=== PATIENT | female | born 1945 | race Caucasian/White ===

== ENCOUNTER 2018-08-18 14:50 | Inpatient (IN) | payer MEDICARE, OTHER, SELFPAY ==
[~2018-08-18] VITALS: Ht 165.1 cm; Wt 64.1 kg
--- NOTE | 2018-08-18 14:50 | NUR ---
PT BIB [facility] AFTER SLIPPING ON ICE. PT DENIES HEAD PAIN, NECK PAIN, OR LOC. PT RECEIVED FENTANYL AND [employer] SUPPORT MANAGER. PT ON MONITOR.
--- NOTE | 2018-08-18 16:04 | NUR ---
REPORT TO VELMA Germain RN
[2018-08-18 16:26] LABS: BASOPHILS # (AUTO) 0.03 x10^3/uL (0-0.1); BASOPHILS % (AUTO) 0 % (0-1); EOSINOPHILS # (AUTO) 0.14 x10^3/uL (0-0.4); EOSINOPHILS % (AUTO) 1 % (1-7); LYMPHOCYTES # (AUTO) 1.27 x10^3/uL (1-3.4); LYMPHOCYTES % (AUTO) 12 % (22-44); MD NO; MEAN CORPUSCULAR HEMOGLOBIN 34.2 pg (27.0-34.8); MEAN CORPUSCULAR VOLUME 100.6 fL (80-100); MEAN PLATELET VOLUME 7.9 fL (7.4-10.4); MONOCYTES % (AUTO) 5 % (2-9); NEUTROPHILS # (AUTO) 8.67 x10^3/uL (1.8-6.8); NEUTROPHILS % (AUTO) 82 % (42-75); PLATELET COUNT 202 x10^3/uL (130-400); RED BLOOD COUNT 4.46 x10^6/uL (3.82-5.3); RED CELL DISTRIBUTION WIDTH 14.3 % (9.6-15.2)
--- NOTE | 2018-08-18 16:28 | NUR ---
Bedside SBAR report received from RNCathleen. [facility] resting [facility] aware of plan to admit to hospital.
[2018-08-18] MEDS ORDERED: MORPHINE SULFATE 4 MG/ML, 1ML ONE (16:30)
[2018-08-18] MEDS ORDERED: PLEASE ENTER ALLERGIES MC SCH (16:30)
[2018-08-18] MEDS ORDERED: ONDANSETRON 2MG/ML, 2ML IVPush ONE (16:30)
[2018-08-18] MEDS ORDERED: SODIUM CHLORIDE FLUSH 10ML SYR IVF ONE (16:30)
[2018-08-18] MEDS ORDERED: MORPHINE SULFATE 4 MG/ML, 1ML IVPush PRN (16:30)
[2018-08-18 16:35] LABS: INTERNATIONAL NORMALIZED RATIO 0.97 (0.93-1.1); PROTHROMBIN TIME 10.3 Seconds (9.6-11.5)
[2018-08-18] MEDS ORDERED: ONDANSETRON 2MG/ML, 2ML ONE ×2 (16:35→21:05)
--- NOTE | 2018-08-18 16:36 | NUR ---
Pt medicated per AUG. Pt to imaging, with tech, via fang.
[2018-08-18 16:37] LABS: ALANINE AMINOTRANSFERASE 27 U/L (12-78); ALBUMIN 3.9 g/dL (3.4-5.0); ANION GAP 8 mmol/L (5-15); CALCIUM 8.8 mg/dL (8.5-10.1); CHLORIDE 108 mmol/L (98-107); CREATININE 0.83 mg/dL (0.55-1.02)
[2018-08-18 16:39] LABS: ALKALINE PHOSPHATASE 122 U/L (45-117); BILIRUBIN,TOTAL 0.6 mg/dL (0.2-1.0)
--- NOTE | 2018-08-18 17:25 | NUR ---
Pt's daughter: Gloria Mathis , called for pt's med rec.
[2018-08-18] MEDS ORDERED: vitamin b PO (17:35)
[2018-08-18] MEDS ORDERED: MONT10TA9 PO (17:35)
[2018-08-18] MEDS ORDERED: POTA20TA89 PO (17:35)
[2018-08-18] MEDS ORDERED: TORS5TAB4 PO (17:35)
[2018-08-18] MEDS ORDERED: PRAV10TA2 PO (17:35)
--- NOTE | 2018-08-18 17:49 | NUR ---
Pt to imaging, with tech, via gupanfilo.
--- NOTE | 2018-08-18 18:40 | NUR ---
Dr. Metzger at bedside to evaluate pt and discuss POC.
--- NOTE | 2018-08-18 18:51 | NUR ---
TELEPHONE SBAR REPORT GIVEN TO CAD ENGINEERLALI. LALI AWARE THAT PT IS REQUESTING TO HAVE PANTS REMOVED AFTER ANESTHESIA.
[2018-08-18] MEDS ORDERED: SODIUM CHLORIDE FLUSH 10ML SYR IVF PRN (19:00)
[2018-08-18] MEDS ORDERED: FENTANYL PF 250 MCG/5ML ONE (19:13)
[2018-08-18] MEDS ORDERED: hydrALAzine 20 MG/ML, 1ML IV PRN (19:30)
[2018-08-18] MEDS ORDERED: ONDANSETRON 2MG/ML, 2ML IV PRN ×2 (19:30→23:30)
[2018-08-18] MEDS ORDERED: OXYcodone 5 MG/5 ML ORAL.SOL UDC PO PRN (19:30)
[2018-08-18] MEDS ORDERED: MEPERIDINE/PF 25MG/0.5ML IVPush PRN (19:30)
[2018-08-18] MEDS ORDERED: ACETAMINOPHEN 325 MG TABLET PO PRN ×2 (19:30→23:30)
[2018-08-18] MEDS ORDERED: LABETALOL 5MG/ML, 20ML IV PRN (19:30)
[2018-08-18] MEDS ORDERED: PROMETHAZINE 25 MG/ML, 1ML IV PRN (19:30)
[2018-08-18] MEDS ORDERED: BUPIVACAINE/PF-EPI 0.5% 1:200K ONE (19:36)
[2018-08-18] MEDS ORDERED: DEXAMETHASONE 4 MG/ML, 1ML ONE (19:45)
[2018-08-18] MEDS ORDERED: TRANEXAMIC ACID 100 MG/ML, 10ML ONE (20:07)
[2018-08-18] MEDS ORDERED: ROCURONIUM 10MG/ML,5ML ONE (21:05)
[2018-08-18] MEDS ORDERED: CEFAZOLIN 1,000 MG ONE ×2 (21:05)
[2018-08-18] MEDS ORDERED: PROPOFOL 10 MG/ML, 20ML ONE (21:05)
[2018-08-18] MEDS ORDERED: FENTANYL PF 100 MCG/2ML ONE ×2 (21:24→21:41)
[2018-08-18] MEDS ORDERED: OXYcodone 5 MG/5 ML ORAL.SOL UDC ONE (21:41)
[2018-08-18] MEDS: FENTANYL PF 100 MCG/2ML IV PRN ×2 (21:44→21:57)
[2018-08-18] MEDS ORDERED: HYDROmorphone 1 MG/ML, 1ML ONE (21:59)
[2018-08-18] MEDS: HYDROmorphone 2 MG/ML, 1ML IVPush PRN ×4 (22:01→22:26)
[2018-08-18] MEDS ORDERED: ALUMINUM/MAG/SIMETHICONE 30 ML UDC PO PRN (23:30)
[2018-08-18] MEDS ORDERED: SENNA/DOCUSATE TABLET PO PRN (23:30)
[2018-08-18] MEDS ORDERED: HYDROmorphone 2 MG/ML, 1ML IVPush PRN (23:30)
[2018-08-18] MEDS ORDERED: DIAZEPAM 5 MG TABLET PO PRN (23:30)
[2018-08-18] MEDS ORDERED: MAGNESIUM HYDROXIDE 8%, 30ML UDC PO PRN (23:30)
[2018-08-18] MEDS ORDERED: HYDROcodone/APAP 7.5-325MG/15ML UDC PO PRN (23:30)
[2018-08-18] MEDS ORDERED: BISACODYL 10 MG SUPP PR PRN (23:30)
[2018-08-19 00:06] VITALS: BP 116/77
[2018-08-19] MEDS: OXYcodone 5 MG/5 ML ORAL.SOL UDC PO PRN ×4 (01:28→19:46)
[2018-08-19] MEDS: CEFAZOLIN PMX 2GM/50ML 50 ML IVPB SCH ×2 (04:46→13:33)
[2018-08-19 05:07] LABS: ALBUMIN 3.1 g/dL (3.4-5.0); ANION GAP 6 mmol/L (5-15); CALCIUM 7.9 mg/dL (8.5-10.1); CHLORIDE 108 mmol/L (98-107); CREATININE 0.89 mg/dL (0.55-1.02)
[2018-08-19] MEDS: D5%-LACTATED RINGERS 1,000 ML IV SCH ×2 (06:58→19:40)
[2018-08-19] MEDS: SODIUM CHLORIDE FLUSH 10ML SYR IVF SCH ×2 (07:53→19:46)
[2018-08-19] MEDS: HEPARIN 5,000 UNITS/ML, 1ML SQ SCH ×3 (07:53→16:16)
[2018-08-19] MEDS: DOCUSATE 100 MG CAPSULE PO SCH ×2 (07:53→19:46)
[2018-08-19] MEDS: POTASSIUM CHLORIDE 20 MEQ TAB.ER.PRT PO SCH (07:53)
[2018-08-19] MEDS: MONTELUKAST 10 MG TABLET PO SCH (07:53)
[2018-08-19] MEDS: MULTIVITAMINS/MINERALS TABLET PO SCH (07:53)
[2018-08-19 08:57] VITALS: BP 106/80
[2018-08-19] MEDS: TORSEMIDE 5 MG PO SCH (09:00)
[2018-08-19] MEDS ORDERED: VIT1CAPS42 PO (10:49)
[2018-08-19 14:53] VITALS: BP 109/71
[2018-08-19 17:23] LABS: CULTURE INDICATED? YES; MICROSCOPIC AUTO
[2018-08-19 19:35] VITALS: BP 119/67
[2018-08-19] MEDS: PRAVASTATIN 20 MG TABLET PO SCH (19:46)
[2018-08-20] VITALS: BP 115/63
[2018-08-20] MEDS: OXYcodone 5 MG/5 ML ORAL.SOL UDC PO PRN ×4 (01:48→20:51)
[2018-08-20] MEDS: HEPARIN 5,000 UNITS/ML, 1ML SQ SCH ×3 (01:48→17:08)
[2018-08-20] MEDS: D5%-LACTATED RINGERS 1,000 ML IV SCH ×2 (03:36→23:30)
[2018-08-20 09:10] VITALS: BP 100/67
[2018-08-20] MEDS: SODIUM CHLORIDE FLUSH 10ML SYR IVF SCH ×2 (09:11→20:40)
[2018-08-20] MEDS: TORSEMIDE 5 MG PO SCH (09:14)
[2018-08-20] MEDS: POTASSIUM CHLORIDE 20 MEQ TAB.ER.PRT PO SCH (09:16)
[2018-08-20] MEDS: DOCUSATE 100 MG CAPSULE PO SCH ×2 (09:16→20:40)
[2018-08-20] MEDS: MULTIVITAMINS/MINERALS TABLET PO SCH (09:16)
[2018-08-20] MEDS: MONTELUKAST 10 MG TABLET PO SCH (09:16)
[2018-08-20] MEDS: AREDS HOMEMEDPO SCH ×2 (11:14→20:42)
[2018-08-20] MEDS: POLYETHYLENE GLYCOL 17 GM PACKET PO SCH (11:16)
[2018-08-20] MEDS ORDERED: SENN-177 PO (13:26)
[2018-08-20] MEDS ORDERED: ACET325T14 PO (13:26)
[2018-08-20 15:00] VITALS: BP 104/62
[2018-08-20 19:43] LABS: HEMOGLOBIN A1C 4.8 % (4.2-6.3)
[2018-08-20] MEDS: PRAVASTATIN 20 MG TABLET PO SCH (20:41)
[2018-08-20 20:58] VITALS: BP 103/68
[2018-08-21 02:58] VITALS: BP 110/69
[2018-08-21] MEDS: HEPARIN 5,000 UNITS/ML, 1ML SQ SCH ×3 (03:39→17:10)
[2018-08-21 07:20] VITALS: BP 108/71
[2018-08-21] MEDS: D5%-LACTATED RINGERS 1,000 ML IV SCH ×2 (07:53→19:30)
[2018-08-21] MEDS: SODIUM CHLORIDE FLUSH 10ML SYR IVF SCH ×2 (08:00→20:52)
[2018-08-21] MEDS: POLYETHYLENE GLYCOL 17 GM PACKET PO SCH (08:00)
[2018-08-21] MEDS: DOCUSATE 100 MG CAPSULE PO SCH ×2 (08:00→20:51)
[2018-08-21] MEDS: MONTELUKAST 10 MG TABLET PO SCH (08:00)
[2018-08-21] MEDS: MULTIVITAMINS/MINERALS TABLET PO SCH (08:00)
[2018-08-21] MEDS: POTASSIUM CHLORIDE 20 MEQ TAB.ER.PRT PO SCH (08:00)
[2018-08-21] MEDS: AREDS HOMEMEDPO SCH ×2 (08:00→20:52)
[2018-08-21] MEDS: OXYcodone 5 MG/5 ML ORAL.SOL UDC PO PRN (13:45)
[2018-08-21 14:36] VITALS: BP 99/57
[2018-08-21] MEDS: PRAVASTATIN 20 MG TABLET PO SCH (20:50)
[2018-08-21 20:56] VITALS: BP 99/62
[2018-08-22 01:11] VITALS: BP 120/68
[2018-08-22] MEDS: HEPARIN 5,000 UNITS/ML, 1ML SQ SCH ×3 (01:49→17:17)
[2018-08-22] MEDS: D5%-LACTATED RINGERS 1,000 ML IV SCH ×2 (01:49→12:42)
[2018-08-22] MEDS: OXYcodone 5 MG/5 ML ORAL.SOL UDC PO PRN ×2 (06:31→19:53)
[2018-08-22 07:21] VITALS: BP 103/54
[2018-08-22] MEDS: POTASSIUM CHLORIDE 20 MEQ TAB.ER.PRT PO SCH (08:20)
[2018-08-22] MEDS: MONTELUKAST 10 MG TABLET PO SCH (08:20)
[2018-08-22] MEDS: AREDS HOMEMEDPO SCH ×2 (08:20→19:54)
[2018-08-22] MEDS: POLYETHYLENE GLYCOL 17 GM PACKET PO SCH ×2 (08:20→19:54)
[2018-08-22] MEDS: MULTIVITAMINS/MINERALS TABLET PO SCH (08:20)
[2018-08-22] MEDS: DOCUSATE 100 MG CAPSULE PO SCH ×2 (08:23→19:54)
[2018-08-22] MEDS: SODIUM CHLORIDE FLUSH 10ML SYR IVF SCH ×2 (08:24→19:56)
[2018-08-22] MEDS ORDERED: GLYCERIN ADULT SUPP PR ONE (12:00)
[2018-08-22] MEDS ORDERED: HEPA50002 SQ (12:18)
[2018-08-22 13:34] VITALS: BP 114/56
[2018-08-22 19:35] VITALS: BP 111/65
[2018-08-22] MEDS: PRAVASTATIN 20 MG TABLET PO SCH (19:54)
[2018-08-23 01:24] VITALS: BP 102/66
[2018-08-23] MEDS: D5%-LACTATED RINGERS 1,000 ML IV SCH ×3 (01:30→21:12)
[2018-08-23] MEDS: HEPARIN 5,000 UNITS/ML, 1ML SQ SCH ×3 (01:39→17:39)
[2018-08-23] MEDS: OXYcodone 5 MG/5 ML ORAL.SOL UDC PO PRN ×4 (05:25→21:20)
[2018-08-23 07:34] VITALS: BP 105/63
[2018-08-23] MEDS: MULTIVITAMINS/MINERALS TABLET PO SCH (09:41)
[2018-08-23] MEDS: POLYETHYLENE GLYCOL 17 GM PACKET PO SCH ×2 (09:41→21:13)
[2018-08-23] MEDS: POTASSIUM CHLORIDE 20 MEQ TAB.ER.PRT PO SCH (09:41)
[2018-08-23] MEDS: MONTELUKAST 10 MG TABLET PO SCH (09:41)
[2018-08-23] MEDS: DOCUSATE 100 MG CAPSULE PO SCH ×2 (09:41→21:12)
[2018-08-23] MEDS: SODIUM CHLORIDE FLUSH 10ML SYR IVF SCH ×2 (09:42→21:11)
[2018-08-23] MEDS: AREDS HOMEMEDPO SCH ×2 (09:52→21:00)
[2018-08-23 12:36] VITALS: BP 101/65
[2018-08-23] MEDS: PRAVASTATIN 20 MG TABLET PO SCH (21:12)
[2018-08-23 21:17] VITALS: BP 102/68
[2018-08-24] MEDS: HEPARIN 5,000 UNITS/ML, 1ML SQ SCH ×3 (02:36→17:43)
[2018-08-24 02:41] VITALS: BP 108/60
[2018-08-24 07:43] VITALS: BP 103/54
[2018-08-24] MEDS: AREDS HOMEMEDPO SCH ×2 (10:16→22:36)
[2018-08-24] MEDS: SODIUM CHLORIDE FLUSH 10ML SYR IVF SCH ×2 (10:16→22:34)
[2018-08-24] MEDS: DOCUSATE 100 MG CAPSULE PO SCH ×2 (10:17→22:32)
[2018-08-24] MEDS: TORSEMIDE 20 MG TABLET PO SCH (10:17)
[2018-08-24] MEDS: MONTELUKAST 10 MG TABLET PO SCH (10:18)
[2018-08-24] MEDS: POLYETHYLENE GLYCOL 17 GM PACKET PO SCH ×2 (10:18→22:33)
[2018-08-24] MEDS: MULTIVITAMINS/MINERALS TABLET PO SCH (10:18)
[2018-08-24] MEDS: POTASSIUM CHLORIDE 20 MEQ TAB.ER.PRT PO SCH (10:18)
[2018-08-24 12:34] VITALS: BP 103/64
[2018-08-24] MEDS: OXYcodone 5 MG/5 ML ORAL.SOL UDC PO PRN ×2 (17:43→22:32)
[2018-08-24 19:58] VITALS: BP 103/64
[2018-08-24] MEDS: PRAVASTATIN 20 MG TABLET PO SCH (22:32)
[2018-08-25 00:37] VITALS: BP 101/62
[2018-08-25] MEDS: HEPARIN 5,000 UNITS/ML, 1ML SQ SCH ×3 (02:28→17:01)
[2018-08-25] MEDS: OXYcodone 5 MG/5 ML ORAL.SOL UDC PO PRN ×4 (02:28→21:31)
[2018-08-25 08:30] VITALS: BP 97/62
[2018-08-25] MEDS: DOCUSATE 100 MG CAPSULE PO SCH ×2 (08:37→21:30)
[2018-08-25] MEDS: MULTIVITAMINS/MINERALS TABLET PO SCH (08:37)
[2018-08-25] MEDS: MONTELUKAST 10 MG TABLET PO SCH (08:37)
[2018-08-25] MEDS: POTASSIUM CHLORIDE 20 MEQ TAB.ER.PRT PO SCH (08:37)
[2018-08-25] MEDS: SODIUM CHLORIDE FLUSH 10ML SYR IVF SCH ×2 (08:39→21:31)
[2018-08-25] MEDS: POLYETHYLENE GLYCOL 17 GM PACKET PO SCH ×2 (09:00→21:31)
[2018-08-25] MEDS: TORSEMIDE 20 MG TABLET PO SCH (09:00)
[2018-08-25] MEDS: LIDODERM 5% PATCH TD SCH ×2 (09:00→09:19)
[2018-08-25] MEDS: AREDS HOMEMEDPO SCH ×2 (09:00→21:32)
[2018-08-25 12:54] VITALS: BP 102/52
[2018-08-25 19:10] VITALS: BP 104/54
[2018-08-25] MEDS: PRAVASTATIN 20 MG TABLET PO SCH (21:30)
[2018-08-26 00:33] VITALS: BP 118/71
[2018-08-26] MEDS: OXYcodone 5 MG/5 ML ORAL.SOL UDC PO PRN ×2 (01:56→05:53)
[2018-08-26] MEDS: HEPARIN 5,000 UNITS/ML, 1ML SQ SCH ×2 (01:56→09:11)
[2018-08-26 05:08] LABS: BASOPHILS # (AUTO) 0.03 x10^3/uL (0-0.1); BASOPHILS % (AUTO) 1 % (0-1); EOSINOPHILS # (AUTO) 0.56 x10^3/uL (0-0.4); EOSINOPHILS % (AUTO) 10 % (1-7); LYMPHOCYTES # (AUTO) 1.57 x10^3/uL (1-3.4); LYMPHOCYTES % (AUTO) 29 % (22-44); MD NO; MEAN CORPUSCULAR HEMOGLOBIN 34.2 pg (27.0-34.8); MEAN CORPUSCULAR HGB CONC 34.3 g/dL (32.4-35.8); MEAN CORPUSCULAR VOLUME 99.8 fL (80-100); MEAN PLATELET VOLUME 7.3 fL (7.4-10.4); MONOCYTES # (AUTO) 0.62 x10^3/uL (0.2-0.8); MONOCYTES % (AUTO) 11 % (2-9); NEUTROPHILS # (AUTO) 2.72 x10^3/uL (1.8-6.8); NEUTROPHILS % (AUTO) 50 % (42-75); PLATELET COUNT 265 x10^3/uL (130-400); RED BLOOD COUNT 3.06 x10^6/uL (3.82-5.3); RED CELL DISTRIBUTION WIDTH 14.3 % (9.6-15.2)
[2018-08-26 07:14] VITALS: BP 105/71
[2018-08-26] MEDS: LIDODERM 5% PATCH TD SCH (09:00)
[2018-08-26] MEDS: POLYETHYLENE GLYCOL 17 GM PACKET PO SCH (09:00)
[2018-08-26] MEDS: DOCUSATE 100 MG CAPSULE PO SCH (09:11)
[2018-08-26] MEDS: MULTIVITAMINS/MINERALS TABLET PO SCH (09:11)
[2018-08-26] MEDS: POTASSIUM CHLORIDE 20 MEQ TAB.ER.PRT PO SCH (09:11)
[2018-08-26] MEDS: MONTELUKAST 10 MG TABLET PO SCH (09:11)
[2018-08-26] MEDS: TORSEMIDE 20 MG TABLET PO SCH (09:12)
[2018-08-26] MEDS: AREDS HOMEMEDPO SCH (09:13)
[2018-08-26] MEDS: SODIUM CHLORIDE FLUSH 10ML SYR IVF SCH (09:14)
[2018-08-26 13:08] VITALS: BP 107/65
[2018-08-26 15:22] VITALS: BP 105/66
== END 2018-08-26 16:56 | DRG 481 ==
LOC: ED 18:21 → EDIP 18:54 → 4NOR 23:01
PROVIDERS: ADMIT Internal Medicine; ATTEND Internal Medicine
PROC: 0QSC04Z Reposition Left Lower Femur with Internal Fixation Device, Open Approach (ICD-10-PCS; principal; 2018-08-18 18:45)
DX: S72.452A Displaced supracondylar fracture without intracondylar extension of lower end of left femur, initial encounter for closed fracture (principal); D62 Acute posthemorrhagic anemia; M97.9XXA Periprosthetic fracture around unspecified internal prosthetic joint, initial encounter; M85.80 Other specified disorders of bone density and structure, unspecified site; F17.210 Nicotine dependence, cigarettes, uncomplicated; E78.5 Hyperlipidemia, unspecified; I10 Essential (primary) hypertension; T40.605A Adverse effect of unspecified narcotics, initial encounter; K59.03 Drug induced constipation; W00.0XXA Fall on same level due to ice and snow, initial encounter; Y93.01 Activity, walking, marching and hiking; R06.89 Other abnormalities of breathing; Z79.899 Other long term (current) drug therapy; Z96.653 Presence of artificial knee joint, bilateral; Y92.89 Other specified places as the place of occurrence of the external cause; Y99.8 Other external cause status; Z88.0 Allergy status to penicillin; Z98.51 Tubal ligation status; Z98.49 Cataract extraction status, unspecified eye
CPT/HCPCS: 36415; 71045; 76001; 80048; 80053; 81001; 82040; 83036; 85014; 85018; 85025; 85610; 87086; 93005; 96374; C1713; G0378; J0690; J1100; J1170; J1644; J2405; J2704; J3010; J7121

== ENCOUNTER 2019-03-06 12:27 | Outpatient (CLI) | payer MEDICARE ==
[~2019-03-06 12:27] MED LIST: ACET325T14 PO; HEPA50002 SQ; MONT10TA9 PO; POTA20TA89 PO; PRAV10TA2 PO; SENN-177 PO; TORS5TAB4 PO; VIT1CAPS42 PO; vitamin b PO
== END 2019-03-06 23:59 | disposition home or self-care (01) ==
LOC: CFH 12:27
PROVIDERS: ATTEND Physician Assistant
DX: Z12.2 Encounter for screening for malignant neoplasm of respiratory organs (principal); I25.10 Atherosclerotic heart disease of native coronary artery without angina pectoris; M85.88 Other specified disorders of bone density and structure, other site; M48.04 Spinal stenosis, thoracic region; J98.4 Other disorders of lung; M51.34 Other intervertebral disc degeneration, thoracic region; I77.810 Thoracic aortic ectasia; F17.210 Nicotine dependence, cigarettes, uncomplicated
CPT/HCPCS: G0297